=== PATIENT | female | born 1995 | race Caucasian/White ===

== ENCOUNTER 2021-05-22 13:52 | Emergency (ER) | payer OTHER, SELFPAY ==
[2021-05-22 14:02] VITALS: BP 112/82; PULSE 93; RESP 26; TEMP 37.1; O2SAT 97; BMI 17.6
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
[2021-05-22 15:42] LABS: MANUAL DIFF FLAG NO
[2021-05-22 15:42] LABS: COVID-19 Test Negative (Negative); IDNOW Serial# 9DD0AD1C
[2021-05-22 15:43] LABS: Basophils Absolute Auto 0.1 X10*3/uL (0.0-0.2); Basophils Percent Auto 0.4 % (0-2); Eosinophils Percent Auto 0.1 % (0-4); Hematocrit 49.8 % (37-47); Hemoglobin 17.1 g/dl (12.0-16.0); Imm Gran Abs Auto 0.04 X10*3/uL (0.00-0.03); Imm Gran Pct Auto 0.3 % (0.0-0.4); Lymphocytes Absolute Auto 1.3 X10*3/uL (1.2-4.9); Mean Corpuscular HGB Conc 34.3 g/dl (31.0-35.0); Mean Corpuscular Hemoglobin 30.5 pg (27.0-33.0); Mean Corpuscular Volume 88.9 fL (80-98); Mean Platelet Volume 10.9 fL (9.4-12.3); Monocytes Absolute Auto 0.9 X10*3/uL (0.1-1.2); Monocytes Percent Auto 6.6 % (2-11); Neutrophils Absolute Auto 10.8 X10*3/uL (2.0-8.3); Neutrophils Percent Auto 82.6 % (45-73); Platelet Count 333 X10*3/uL (160-400); Red Cell Distribution Width 13.1 % (11.0-16.0); White Blood Count 13.1 X10*3/uL (4.8-10.8)
[2021-05-22 15:54] LABS: Amphetamine Screen Urine Not Detected (Not Detect); Barbiturates, Urine Not Detected (Not Detect); Benzodiazepines Screen Urine Not Detected (Not Detect); Cannabinoid Screen Urine POSITIVE (Not Detect); Cocaine Screen Urine Not Detected (Not Detect); Fentanyl, urine Not Detected (Not Detect); Opiate Screen Urine Not Detected (Not Detect); Phencyclidine Screen Urine Not Detected (Not Detect)
[2021-05-22 15:59] LABS: Ethanol < 10 mg/dL
[2021-05-22 16:06] LABS: Alanine Aminotransferase 94 U/L (0-31); Albumin Level 5.4 g/dL (3.5-5.0); Alkaline Phosphatase 106 U/L (39-117); Anion Gap 16 (12-20); Aspartate Amino Transferase 22 U/L (5-31); Bilirubin Direct 0.3 mg/dL (0.0-0.5); Bilirubin Total 0.7 mg/dL (0.0-1.0); Blood Urea Nitrogen 21 mg/dL (9-16); Calcium 10.5 mg/dL (8.4-10.2); Carbon Dioxide 23 mmol/L (22-29); Chloride 105 mmol/L (96-108); Creatinine Clr Calc Pharmacy 68.1; Estimated Glomerular Filt Rate > 60; Glucose Random 80 mg/dL (60-115); Potassium 4.2 mmol/L (3.3-5.1); Sodium 140 mmol/L (135-145); Total Protein 8.8 g/dL (6.5-8.0)
--- NOTE | 2021-05-22 22:11 | MHC.CARE ---
Pt is a 25 year old transgender female to male who presents to ED secondary to making HI statements to his ex bf over text. Pt reports his ex boyfriend lives in [place] and pt does not drive. He states ex boyfriend dropped him off at a mental hospital last month when I told him I was suicidal and then abandoned me, blocked me and never talked to me again. That was a month ago i've been angry so I texted him telling him I was going to slit his throat then next thing you know I am getting a call from [place] police threatening to arrest me . T/W contacted [facility] who was initially on scene with police. [facility] reports that pt initially denies making any suicidal statements also admitted to making HI statement however denied any intent. He reported to police that he is autistic and has a hx of mental health problems. Pt reportedly made contradictory statements and was trying to call ex boyfriend after being told not to. Pt had several outbursts and was unable to calm down therefore sent to the ED. T/W spoke with his step mother Nelia [phone] who reports pt has a bordeline personality disorder. She states that pt told his father yesterday expect the bricklayer helper . She reports pt has been in and out of crisis and calls crisis a lot. She states that pt lives with them and his two year old daughter who his father has custody of. He reportedly has emotional outbursts when he doesn't get the reaction he needs. She states he threatens to kill himself all the time and refuses to take any medications. Pt denies current SI/HI and reports that he has therapy on Thursday. He reports the threats were in the context of anger. pt has been in behavioral control since arrival. T/w talked with provider Mackenzie Yan and he was in agreement. Pt discharged home.
== END 2021-05-22 22:12 | disposition home or self-care (01) ==
PROVIDERS: Nurse Practitioner Family; Emergency Provider Emergency Medicine Emergency Medical Services
DX: F33.1 Major depressive disorder, recurrent, moderate (principal); R45.851 Suicidal ideations; Z79.899 Other long term (current) drug therapy; Z20.822 Contact with and (suspected) exposure to COVID-19
CPT/HCPCS: 36415; 80048; 80076; 80307; 82077; 85025; 87635; 99284